=== PATIENT | male | born 1955 | race Caucasian/White ===

== ENCOUNTER 2021-07-27 17:20 | Inpatient (IN) | payer OTHER, MEDICAID, SELFPAY ==
[~2021-07-27] VITALS: Ht 170.2 cm; Wt 106.8 kg
[2021-07-27] MEDS ORDERED: NACL 0.9% 2,000 ML IV ONE (17:30)
[2021-07-27 17:34] VITALS: BP_SYST 120
[2021-07-27 18:18] LABS: ANION GAP 10 (5-15); BASOPHILS % (AUTO) 0.1 % (0.0-2.0); CALCIUM 7.8 mg/dL (8.4-11.0); CHLORIDE 95 mmol/L (98-107); CREATININE 2.59 mg/dL (0.55-1.30); HEMOGLOBIN 9.2 g/dL (14.0-18.0); LYMPHOCYTES # (AUTO) 0.6 K/uL (1.0-5.5); LYMPHOCYTES % (AUTO) 4.2 % (20.5-51.5); MEAN CORPUSCULAR HEMOGLOBIN 29 pg (27-31); MEAN CORPUSCULAR HGB CONC 33 % (32-36); MEAN CORPUSCULAR VOLUME 87 fL (79.0-98.0); MONOCYTES # (AUTO) 0.8 K/uL (0.0-1.0); MONOCYTES % (AUTO) 5.6 % (1.7-9.3); NEUTROPHILS # (AUTO) 13.4 K/uL (1.8-7.7); NEUTROPHILS % (AUTO) 90.1 % (40.0-70.0); PLATELET COUNT (AUTO) 194 K/uL (130-430); POTASSIUM 3.8 mmol/L (3.5-5.1); RED BLOOD CELL COUNT(AUTO) 3.21 MIL/uL (4.2-6.2); RED CELL DISTRIBUTION WIDTH 15.1 % (9.0-15.0); SODIUM SERUM 130 mmol/L (136-145); UREA NITROGEN, BLOOD 28 mg/dL (8-21); WHITE BLOOD COUNT (AUTO) 14.9 K/uL (4.8-10.8)
[2021-07-27 18:19] LABS: INR 1.2 (0.80-1.20); PROTHROMBIN TIME 12.4 SECS (9.5-12.5)
[2021-07-27 18:20] LABS: GFR AFRICAN AMERICAN 32 mL/min (>90)
[2021-07-27 18:21] LABS: GLUCOSE 429 mg/dL (70-99)
[2021-07-27 18:26] LABS: ALANINE AMINOTRANSFERASE 13 U/L (12-78); ALBUMIN 2.2 g/dL (3.4-4.8); ASPARTATE AMINOTRANSFERASE 24 U/L (10-37); TOTAL BILIRUBIN 0.7 mg/dL (0.0-1.0)
[2021-07-27 18:28] LABS: ACETAMINOPHEN < 1 ug/mL (1-30); ALCOHOL, BLOOD < 3 mg/dL (<10)
[2021-07-27] MEDS ORDERED: INSULIN REGULAR, HUMAN 10 UNITS/0.1 ML INJ IVP ONE (18:30)
[2021-07-27 19:48] LABS: BARBITURATE, URINE NEGATIVE (NEG <=200); BENZODIAZEPINE, URINE NEGATIVE (NEG <=150); CANNABINOID, URINE NEGATIVE (NEG <=50); COCAINE, URINE NEGATIVE (NEG <=150); METHAMPHETAMINES SCREEN,URINE POSITIVE (NEG <=500); OPIATE, URINE NEGATIVE (NEG <=100); PHENCYCLIDINE SCREEN,URINE NEGATIVE (NEG <=25); UR TRICYCLIC ANTIDEPRESSANTS NEGATIVE (NEG <=300); URINE AMPHETAMINE POSITIVE (NEG <=500); URINE METHADONE NEGATIVE (NEG <=200); URINE OXYCODONE SCREEN NEGATIVE (NEG <=100); URINE PROPOXYPHENE SCREEN NEGATIVE (NEG <=300)
[2021-07-27 19:49] LABS: BILIRUBIN,URINE NEGATIVE (NEGATIVE); BLOOD, URINE 3+ (NEGATIVE); CLARITY/URINE CLEAR (CLEAR); COLOR,URINE YELLOW (YELLOW); GLUCOSE,URINE 3+ (NEGATIVE); KETONES,URINE NEGATIVE (NEGATIVE); LEUKOCYTE ESTERASE ,URINE 1+ (NEGATIVE); NITRITE, URINE NEGATIVE (NEGATIVE); PROTEIN URINE NEGATIVE (NEGATIVE); UROBILINOGEN,URINE 0.2 (0.2-1.0)
[2021-07-27 19:51] LABS: RBC,URINE NONE SEEN /HPF (0-3)
[2021-07-27 19:52] LABS: BACTERIA,URINE FEW /HPF (None Seen); MUCUS,URINE None Seen /LPF (None Seen); YEAST,URINE Moderate /HPF (None Seen)
[2021-07-27] MEDS ORDERED: cefTRIAXone 1 GM in D5W 50 ML IV ONE (20:30)
[2021-07-27] MEDS ORDERED: cefTRIAXone 1 GM VIAL ONE (20:42)
[2021-07-27] MEDS ORDERED: PIPERACILLIN/TAZO 3.375 GM in NS 50 ML IV ONE (20:45)
[2021-07-27] MEDS ORDERED: NOREPINEPHRINE 4 MG/4 ML VIAL IV ONE (20:54)
[2021-07-27] MEDS ORDERED: HYDROCORTISONE SOD SUCC 100 MG/2 ML VIAL IVP ONE (21:00)
[2021-07-27] MEDS ORDERED: NACL 0.9% 1,000 ML IV ONE (21:00)
[2021-07-27] MEDS ORDERED: NOREPINEPHRINE BITARTRATE 4 MG in NS 246 ML IV ONE (21:00)
[2021-07-27] MEDS ORDERED: ALBUMIN HUMAN 5% 250 ML IV ONE (21:00)
[2021-07-27] MEDS ORDERED: D5/0.45 NS 1,000 ML IV SCH (21:15)
[2021-07-27] MEDS ORDERED: cefTRIAXone 1 GM IVPB PREMIX 50 ML IV SCH (22:00)
[2021-07-27] MEDS ORDERED: INSULIN REGULAR, HUMAN 100 UNITS/ML, 10 ML VIAL IVP ONE (22:00)
[2021-07-27] MEDS ORDERED: ONDANSETRON HCL 4 MG/2 ML VIAL IVP PRN (22:00)
[2021-07-27] MEDS ORDERED: INSULIN REGULAR, HUMAN 10 UNITS/0.1 ML INJ ONE (22:50)
[2021-07-27] MEDS ORDERED: PIPERACILLIN/TAZOBACTAM 3.375 GM/VIAL (ZOSYN) IV ONE (23:05)
[2021-07-27] MEDS: PIPERACILLIN/TAZO 3.375/DEX-IS 50 ML IV SCH (23:08)
[2021-07-28] VITALS (29 sets, daily range): BP systolic 71–158
[2021-07-28] MEDS: LORazepam 2 MG/ML VIAL IVP PRN ×3 (00:26→21:39)
[2021-07-28] MEDS ORDERED: NOREPINEPHRINE 4 MG/4 ML VIAL IV ONE (01:01)
[2021-07-28 06:55] LABS: CALCIUM 7.2 mg/dL (8.4-11.0); CREATININE 2.24 mg/dL (0.55-1.30); POTASSIUM 3.3 mmol/L (3.5-5.1)
[2021-07-28 08:24] LABS: HEMATOCRIT 26.3 % (36-54); RED BLOOD CELL COUNT(AUTO) 3.02 MIL/uL (4.2-6.2); WHITE BLOOD COUNT (AUTO) 13.4 K/uL (4.8-10.8)
[2021-07-28 08:25] LABS: LYMPHOCYTES # (AUTO) 0.6 K/uL (1.0-5.5); LYMPHOCYTES % (AUTO) 4.3 % (20.5-51.5); MEAN CORPUSCULAR HEMOGLOBIN 29 pg (27-31); MEAN CORPUSCULAR HGB CONC 33 % (32-36); MEAN CORPUSCULAR VOLUME 87 fL (79.0-98.0); MONOCYTES # (AUTO) 0.7 K/uL (0.0-1.0); MONOCYTES % (AUTO) 5.3 % (1.7-9.3); NEUTROPHILS # (AUTO) 12.1 K/uL (1.8-7.7); NEUTROPHILS % (AUTO) 90.3 % (40.0-70.0); PLATELET COUNT (AUTO) 168 K/uL (130-430); RED CELL DISTRIBUTION WIDTH 14.9 % (9.0-15.0)
[2021-07-28 08:26] LABS: HEMOGLOBIN 8.6 g/dL (14.0-18.0)
[2021-07-28] MEDS: PIPERACILLIN/TAZO 3.375/DEX-IS 50 ML IV SCH ×2 (12:00→18:43)
[2021-07-28] MEDS: NACL 0.9% 1,000 ML IV SCH ×2 (18:15→23:00)
[2021-07-28] MEDS ORDERED: VANCOMYCIN HCL 1 GM/NS PREMIX 250 ML IV ONE (21:15)
[2021-07-28] MEDS ORDERED: VANCOMYCIN HCL 1000 MG/VIAL IV ONE (21:51)
[2021-07-29] VITALS (24 sets, daily range): BP systolic 97–144
[2021-07-29] MEDS: PIPERACILLIN/TAZO 3.375/DEX-IS 50 ML IV SCH ×6 (00:33→23:48)
[2021-07-29] MEDS: LORazepam 2 MG/ML VIAL IVP PRN ×3 (04:48→21:23)
[2021-07-29] MEDS: NACL 0.9% 1,000 ML IV SCH ×2 (07:40→21:24)
[2021-07-29 07:41] LABS: CALCIUM 7.9 mg/dL (8.4-11.0); CREATININE 2.26 mg/dL (0.55-1.30); PHOSPHORUS 2.9 mg/dL (2.7-4.5); POTASSIUM 3.4 mmol/L (3.5-5.1)
[2021-07-29 07:48] LABS: BASOPHILS % (AUTO) 0.2 % (0.0-2.0); EOSINOPHILS % (AUTO) 0.3 % (0.0-4.0); HEMATOCRIT 24.5 % (36-54); HEMOGLOBIN 8.1 g/dL (14.0-18.0); LYMPHOCYTES # (AUTO) 0.6 K/uL (1.0-5.5); LYMPHOCYTES % (AUTO) 5.9 % (20.5-51.5); MEAN CORPUSCULAR HEMOGLOBIN 29 pg (27-31); MEAN CORPUSCULAR HGB CONC 33 % (32-36); MEAN CORPUSCULAR VOLUME 88 fL (79.0-98.0); MONOCYTES # (AUTO) 0.5 K/uL (0.0-1.0); MONOCYTES % (AUTO) 5.2 % (1.7-9.3); NEUTROPHILS # (AUTO) 9.1 K/uL (1.8-7.7); NEUTROPHILS % (AUTO) 88.4 % (40.0-70.0); PLATELET COUNT (AUTO) 130 K/uL (130-430); RED BLOOD CELL COUNT(AUTO) 2.78 MIL/uL (4.2-6.2); WHITE BLOOD COUNT (AUTO) 10.3 K/uL (4.8-10.8)
[2021-07-29 09:08] LABS: ERYTHROCYTE SEDIMENTATION RATE 114 MM/HR (0-15)
[2021-07-29] MEDS: HALOPERIDOL LACTATE 5 MG/ML VIAL IM PRN (14:11)
[2021-07-29] MEDS ORDERED: VANCOMYCIN HCL 1.25 GM/NS 250 ML IV ONE (21:00)
[2021-07-29] MEDS ORDERED: VANCOMYCIN HCL 500 MG/VIAL IV ONE (21:54)
[2021-07-29] MEDS ORDERED: VANCOMYCIN HCL 1000 MG/VIAL IV ONE (21:54)
[2021-07-29] MEDS ORDERED: HEPARIN SODIUM,PORCINE 5,000 UNITS/ML VIAL ONE (23:26)
[2021-07-29] MEDS: HEPARIN SODIUM,PORCINE 5,000 UNITS/ML VIAL SUBCUT SCH (23:47)
[2021-07-30] VITALS (20 sets, daily range): BP systolic 107–150
[2021-07-30] MEDS: INSULIN REGULAR, HUMAN 100 UNITS/ML, 10 ML VIAL (humuLIN R) SUBCUT PRN ×5 (01:29→23:26)
[2021-07-30] MEDS: LORazepam 2 MG/ML VIAL IVP PRN (04:05)
[2021-07-30] MEDS: NACL 0.9% 1,000 ML IV SCH ×2 (04:33→18:13)
[2021-07-30] MEDS: HALOPERIDOL LACTATE 5 MG/ML VIAL IM PRN (06:02)
[2021-07-30] MEDS: PIPERACILLIN/TAZO 3.375/DEX-IS 50 ML IV SCH ×3 (06:03→18:13)
[2021-07-30 06:33] LABS: BASOPHILS % (AUTO) 0.2 % (0.0-2.0); EOSINOPHILS % (AUTO) 0.2 % (0.0-4.0); HEMATOCRIT 26.5 % (36-54); HEMOGLOBIN 8.8 g/dL (14.0-18.0); LYMPHOCYTES # (AUTO) 0.9 K/uL (1.0-5.5); LYMPHOCYTES % (AUTO) 9.1 % (20.5-51.5); MEAN CORPUSCULAR HEMOGLOBIN 29 pg (27-31); MEAN CORPUSCULAR HGB CONC 33 % (32-36); MEAN CORPUSCULAR VOLUME 87 fL (79.0-98.0); MONOCYTES # (AUTO) 0.5 K/uL (0.0-1.0); MONOCYTES % (AUTO) 5.7 % (1.7-9.3); NEUTROPHILS # (AUTO) 8.2 K/uL (1.8-7.7); NEUTROPHILS % (AUTO) 84.8 % (40.0-70.0); PLATELET COUNT (AUTO) 141 K/uL (130-430); RED BLOOD CELL COUNT(AUTO) 3.05 MIL/uL (4.2-6.2); RED CELL DISTRIBUTION WIDTH 14.9 % (9.0-15.0); WHITE BLOOD COUNT (AUTO) 9.6 K/uL (4.8-10.8)
[2021-07-30 07:18] LABS: CALCIUM 8.1 mg/dL (8.4-11.0); POTASSIUM 3.1 mmol/L (3.5-5.1)
[2021-07-30 07:19] LABS: ALBUMIN 1.7 g/dL (3.4-4.8); CREATININE 1.93 mg/dL (0.55-1.30); PHOSPHORUS 2.4 mg/dL (2.7-4.5); TOTAL BILIRUBIN 0.6 mg/dL (0.0-1.0)
[2021-07-30 09:13] LABS: ERYTHROCYTE SEDIMENTATION RATE 110 MM/HR (0-15)
[2021-07-30] MEDS ORDERED: HEPARIN SODIUM,PORCINE 5,000 UNITS/ML VIAL ONE (09:27)
[2021-07-30] MEDS: FLUCONAZOLE 100 MG TABLET (DIFLUCAN) PO SCH (09:41)
[2021-07-30] MEDS: HEPARIN SODIUM,PORCINE 5,000 UNITS/ML VIAL SUBCUT SCH (09:44)
[2021-07-30] MEDS ORDERED: K PHOS 15 MM in NS 250 ML IV ONE (10:45)
[2021-07-30 10:55] LABS: C-REACTIVE PROTEIN QUANT 36.6 mg/dL (0-0.5)
[2021-07-30] MEDS: VANCOMYCIN HCL 1,250 MG in NS 250 ML IV SCH (21:16)
[2021-07-30] MEDS ORDERED: HEPARIN SODIUM,PORCINE 5,000 UNITS/ML VIAL SUBCUT ONE (21:30)
[2021-07-31] MEDS: LORazepam 2 MG/ML VIAL IVP PRN ×3 (00:16→14:20)
[2021-07-31] MEDS: PIPERACILLIN/TAZO 3.375/DEX-IS 50 ML IV SCH ×5 (00:16→23:42)
[2021-07-31 00:24] VITALS: BP_SYST 136
[2021-07-31] MEDS: HALOPERIDOL LACTATE 5 MG/ML VIAL IM PRN ×2 (03:03→16:50)
[2021-07-31] MEDS: NACL 0.9% 1,000 ML IV SCH ×2 (06:26→09:35)
[2021-07-31] MEDS: INSULIN REGULAR, HUMAN 100 UNITS/ML, 10 ML VIAL (humuLIN R) SUBCUT PRN ×4 (06:34→23:36)
[2021-07-31 06:58] LABS: BASOPHILS % (AUTO) 0.1 % (0.0-2.0); CALCIUM 8.3 mg/dL (8.4-11.0); CREATININE 1.86 mg/dL (0.55-1.30); EOSINOPHILS % (AUTO) 0.1 % (0.0-4.0); HEMATOCRIT 26.6 % (36-54); HEMOGLOBIN 8.8 g/dL (14.0-18.0); LYMPHOCYTES # (AUTO) 1.1 K/uL (1.0-5.5); LYMPHOCYTES % (AUTO) 8.4 % (20.5-51.5); MEAN CORPUSCULAR HEMOGLOBIN 29 pg (27-31); MEAN CORPUSCULAR HGB CONC 33 % (32-36); MEAN CORPUSCULAR VOLUME 87 fL (79.0-98.0); MONOCYTES # (AUTO) 0.7 K/uL (0.0-1.0); MONOCYTES % (AUTO) 5.5 % (1.7-9.3); NEUTROPHILS # (AUTO) 10.8 K/uL (1.8-7.7); NEUTROPHILS % (AUTO) 85.9 % (40.0-70.0); PHOSPHORUS 3.2 mg/dL (2.7-4.5); PLATELET COUNT (AUTO) 171 K/uL (130-430); POTASSIUM 3.1 mmol/L (3.5-5.1); RED BLOOD CELL COUNT(AUTO) 3.06 MIL/uL (4.2-6.2); RED CELL DISTRIBUTION WIDTH 15.6 % (9.0-15.0); WHITE BLOOD COUNT (AUTO) 12.6 K/uL (4.8-10.8)
[2021-07-31 07:48] VITALS: BP_SYST 124
[2021-07-31 08:12] LABS: C-REACTIVE PROTEIN QUANT 32.6 mg/dL (0-0.5)
[2021-07-31] MEDS: FLUCONAZOLE 100 MG TABLET (DIFLUCAN) PO SCH ×2 (08:36→08:51)
[2021-07-31] MEDS: HEPARIN SODIUM,PORCINE 5,000 UNITS/ML VIAL SUBCUT SCH ×2 (08:38→21:53)
[2021-07-31 09:22] LABS: ERYTHROCYTE SEDIMENTATION RATE 113 MM/HR (0-15)
[2021-07-31] MEDS ORDERED: KCL 20 mEq in 100 mL (PREMIX) 100 ML IV ONE (10:15)
[2021-07-31] MEDS: KCL 20 mEq in 100 mL (PREMIX) 100 ML IV SCH ×2 (11:06→12:46)
[2021-07-31 11:39] VITALS: BP_SYST 154
[2021-07-31 15:54] VITALS: BP_SYST 162
[2021-07-31] MEDS ORDERED: HALOPERIDOL LACTATE 5 MG/ML VIAL IM ONE (21:00)
[2021-07-31] MEDS: VANCOMYCIN HCL 1,250 MG in NS 250 ML IV SCH (21:26)
[2021-08-01 00:28] VITALS: BP_SYST 139
[2021-08-01] MEDS: NACL 0.9% 1,000 ML IV SCH ×2 (00:50→14:10)
[2021-08-01] MEDS: PIPERACILLIN/TAZO 3.375/DEX-IS 50 ML IV SCH (06:13)
[2021-08-01] MEDS: HALOPERIDOL LACTATE 5 MG/ML VIAL IM PRN (06:15)
[2021-08-01 06:31] LABS: BASOPHILS % (AUTO) 0.1 % (0.0-2.0); EOSINOPHILS % (AUTO) 0.2 % (0.0-4.0); HEMATOCRIT 26.8 % (36-54); HEMOGLOBIN 8.6 g/dL (14.0-18.0); MEAN CORPUSCULAR HEMOGLOBIN 28 pg (27-31); MEAN CORPUSCULAR HGB CONC 32 % (32-36); MEAN CORPUSCULAR VOLUME 88 fL (79.0-98.0); MONOCYTES # (AUTO) 0.8 K/uL (0.0-1.0); MONOCYTES % (AUTO) 6.2 % (1.7-9.3); NEUTROPHILS # (AUTO) 10.8 K/uL (1.8-7.7); NEUTROPHILS % (AUTO) 85.5 % (40.0-70.0); PLATELET COUNT (AUTO) 222 K/uL (130-430); RED BLOOD CELL COUNT(AUTO) 3.04 MIL/uL (4.2-6.2); RED CELL DISTRIBUTION WIDTH 15.9 % (9.0-15.0); WHITE BLOOD COUNT (AUTO) 12.6 K/uL (4.8-10.8)
[2021-08-01] MEDS: INSULIN REGULAR, HUMAN 100 UNITS/ML, 10 ML VIAL (humuLIN R) SUBCUT PRN ×3 (06:57→17:11)
[2021-08-01 07:22] LABS: ALBUMIN 1.7 g/dL (3.4-4.8); CALCIUM 9.4 mg/dL (8.4-11.0); CREATININE 1.93 mg/dL (0.55-1.30); PHOSPHORUS 3.5 mg/dL (2.7-4.5); POTASSIUM 3.3 mmol/L (3.5-5.1); TOTAL BILIRUBIN 0.8 mg/dL (0.0-1.0)
[2021-08-01 07:38] VITALS: BP_SYST 149
[2021-08-01 07:54] LABS: ERYTHROCYTE SEDIMENTATION RATE 110 MM/HR (0-15)
[2021-08-01] MEDS: FLUCONAZOLE 100 MG TABLET (DIFLUCAN) PO SCH (09:00)
[2021-08-01 09:06] LABS: C-REACTIVE PROTEIN QUANT 34.8 mg/dL (0-0.5)
[2021-08-01] MEDS ORDERED: KCL 20 mEq in 100 mL (PREMIX) 100 ML IV ONE (10:00)
[2021-08-01] MEDS: HEPARIN SODIUM,PORCINE 5,000 UNITS/ML VIAL SUBCUT SCH ×2 (10:12→22:08)
[2021-08-01] MEDS: LORazepam 2 MG/ML VIAL IVP PRN ×2 (10:12→15:00)
[2021-08-01] MEDS: cefTRIAXone 1 GM in D5W 50 ML IV SCH (10:13)
[2021-08-01 11:41] VITALS: BP_SYST 142
[2021-08-01 15:40] VITALS: BP_SYST 154
[2021-08-01 20:30] VITALS: BP_SYST 138
[2021-08-01] MEDS: VANCOMYCIN HCL 1,500 MG in NS 250 ML IV SCH (22:09)
[2021-08-02] VITALS (7 sets, daily range): BP systolic 133–164
[2021-08-02] MEDS: INSULIN REGULAR, HUMAN 100 UNITS/ML, 10 ML VIAL (humuLIN R) SUBCUT PRN ×4 (00:35→18:44)
[2021-08-02] MEDS: NACL 0.9% 1,000 ML IV SCH ×2 (03:47→18:43)
[2021-08-02 06:47] LABS: BASOPHILS % (AUTO) 0.3 % (0.0-2.0); EOSINOPHILS % (AUTO) 0.3 % (0.0-4.0); HEMOGLOBIN 8.7 g/dL (14.0-18.0); LYMPHOCYTES # (AUTO) 1.1 K/uL (1.0-5.5); LYMPHOCYTES % (AUTO) 11.3 % (20.5-51.5); MEAN CORPUSCULAR HEMOGLOBIN 29 pg (27-31); MEAN CORPUSCULAR HGB CONC 32 % (32-36); MEAN CORPUSCULAR VOLUME 89 fL (79.0-98.0); MONOCYTES # (AUTO) 0.8 K/uL (0.0-1.0); MONOCYTES % (AUTO) 8.5 % (1.7-9.3); NEUTROPHILS # (AUTO) 7.8 K/uL (1.8-7.7); NEUTROPHILS % (AUTO) 79.6 % (40.0-70.0); PLATELET COUNT (AUTO) 299 K/uL (130-430); RED BLOOD CELL COUNT(AUTO) 3.04 MIL/uL (4.2-6.2); RED CELL DISTRIBUTION WIDTH 16.3 % (9.0-15.0); WHITE BLOOD COUNT (AUTO) 9.8 K/uL (4.8-10.8)
[2021-08-02 06:59] LABS: CALCIUM 8.9 mg/dL (8.4-11.0); CREATININE 1.85 mg/dL (0.55-1.30); PHOSPHORUS 3.3 mg/dL (2.7-4.5); POTASSIUM 3.1 mmol/L (3.5-5.1)
[2021-08-02] MEDS: LORazepam 2 MG/ML VIAL IVP PRN ×2 (08:36→18:34)
[2021-08-02] MEDS: FLUCONAZOLE 100 MG TABLET (DIFLUCAN) PO SCH (08:37)
[2021-08-02] MEDS: HEPARIN SODIUM,PORCINE 5,000 UNITS/ML VIAL SUBCUT SCH ×2 (08:37→21:21)
[2021-08-02 09:34] LABS: C-REACTIVE PROTEIN QUANT 30.4 mg/dL (0-0.5)
[2021-08-02] MEDS ORDERED: KCL 40 mEq in 100 mL (PREMIX) 100 ML IV ONE (10:00)
[2021-08-02] MEDS: cefTRIAXone 1 GM in D5W 50 ML IV SCH (10:54)
[2021-08-02 10:58] LABS: ERYTHROCYTE SEDIMENTATION RATE 107 MM/HR (0-15)
[2021-08-02] MEDS ORDERED: hydrALAZINE HCL 20 MG/ML VIAL IVP PRN (18:15)
[2021-08-02] MEDS ORDERED: *PPN PER PHARMACY XX PRN (20:00)
[2021-08-02] MEDS ORDERED: FUROSEMIDE 40 MG/4 ML VIAL IVP ONE (21:00)
[2021-08-02] MEDS: VANCOMYCIN HCL 1,500 MG in NS 250 ML IV SCH (21:13)
[2021-08-03] MEDS: INSULIN REGULAR, HUMAN 100 UNITS/ML, 10 ML VIAL (humuLIN R) SUBCUT PRN ×4 (00:46→17:20)
[2021-08-03 01:19] VITALS: BP_SYST 150
[2021-08-03] MEDS: LORazepam 2 MG/ML VIAL IVP PRN ×4 (01:54→21:25)
[2021-08-03] MEDS ORDERED: ACETAMINOPHEN 650 MG SUPP.RECT RC PRN (02:45)
[2021-08-03] MEDS: HALOPERIDOL LACTATE 5 MG/ML VIAL IM PRN ×4 (06:01→23:26)
[2021-08-03 07:13] LABS: BASOPHILS % (AUTO) 0.4 % (0.0-2.0); EOSINOPHILS % (AUTO) 0.5 % (0.0-4.0); HEMATOCRIT 27.7 % (36-54); HEMOGLOBIN 8.6 g/dL (14.0-18.0); LYMPHOCYTES # (AUTO) 1.3 K/uL (1.0-5.5); LYMPHOCYTES % (AUTO) 16.4 % (20.5-51.5); MEAN CORPUSCULAR HEMOGLOBIN 28 pg (27-31); MEAN CORPUSCULAR HGB CONC 31 % (32-36); MEAN CORPUSCULAR VOLUME 91 fL (79.0-98.0); MONOCYTES # (AUTO) 0.7 K/uL (0.0-1.0); MONOCYTES % (AUTO) 8.9 % (1.7-9.3); NEUTROPHILS # (AUTO) 5.6 K/uL (1.8-7.7); NEUTROPHILS % (AUTO) 73.8 % (40.0-70.0); PLATELET COUNT (AUTO) 307 K/uL (130-430); RED BLOOD CELL COUNT(AUTO) 3.04 MIL/uL (4.2-6.2); RED CELL DISTRIBUTION WIDTH 16.6 % (9.0-15.0); WHITE BLOOD COUNT (AUTO) 7.6 K/uL (4.8-10.8)
[2021-08-03 07:46] LABS: ALBUMIN 1.5 g/dL (3.4-4.8); CALCIUM 9.7 mg/dL (8.4-11.0); CREATININE 2.37 mg/dL (0.55-1.30); PHOSPHORUS 3.5 mg/dL (2.7-4.5); POTASSIUM 3.2 mmol/L (3.5-5.1); TOTAL BILIRUBIN 0.5 mg/dL (0.0-1.0)
[2021-08-03 08:00] VITALS: BP_SYST 144
[2021-08-03] MEDS: FLUCONAZOLE 100 MG TABLET (DIFLUCAN) PO SCH (09:00)
[2021-08-03 09:12] LABS: ERYTHROCYTE SEDIMENTATION RATE 121 MM/HR (0-15)
[2021-08-03 09:27] LABS: C-REACTIVE PROTEIN QUANT 30.3 mg/dL (0-0.5)
[2021-08-03] MEDS: HEPARIN SODIUM,PORCINE 5,000 UNITS/ML VIAL SUBCUT SCH ×2 (09:49→21:26)
[2021-08-03] MEDS: CHLORHEXIDINE GLUCONATE 15 ML/DOSE, 480 ML MM SCH ×2 (09:51→21:24)
[2021-08-03] MEDS: D5W 1,000 ML IV SCH ×2 (10:27→22:04)
[2021-08-03] MEDS: cefTRIAXone 1 GM in D5W 50 ML IV SCH (11:00)
[2021-08-03 12:57] VITALS: BP_SYST 146
[2021-08-03 16:00] VITALS: BP_SYST 145
[2021-08-03 20:28] VITALS: BP_SYST 172
[2021-08-03] MEDS ORDERED: [UNRECOGNIZED DRUG - OTHER] IV SCH ×6 (21:00)
[2021-08-03] MEDS ORDERED: TPN PERIPHERAL IV SCH ×6 (21:00)
[2021-08-03] MEDS ORDERED: TRACE ELEMENTS IV SCH ×6 (21:00)
[2021-08-03] MEDS ORDERED: HUMAN IV SCH ×6 (21:00)
[2021-08-03] MEDS ORDERED: INSULIN REGULAR IV SCH ×6 (21:00)
[2021-08-03] MEDS: FAT EMULSIONS 250 ML IV SCH (21:56)
[2021-08-03] MEDS: VANCOMYCIN HCL 1,500 MG in NS 250 ML IV SCH (22:04)
[2021-08-04] MEDS: INSULIN REGULAR, HUMAN 100 UNITS/ML, 10 ML VIAL (humuLIN R) SUBCUT PRN ×4 (00:03→17:21)
[2021-08-04] MEDS: HALOPERIDOL LACTATE 5 MG/ML VIAL IM PRN (03:27)
[2021-08-04 06:09] LABS: BASOPHILS % (AUTO) 0.5 % (0.0-2.0); EOSINOPHILS % (AUTO) 0.3 % (0.0-4.0); HEMATOCRIT 27.9 % (36-54); HEMOGLOBIN 8.7 g/dL (14.0-18.0); LYMPHOCYTES # (AUTO) 1.4 K/uL (1.0-5.5); LYMPHOCYTES % (AUTO) 16.7 % (20.5-51.5); MEAN CORPUSCULAR HEMOGLOBIN 29 pg (27-31); MEAN CORPUSCULAR HGB CONC 31 % (32-36); MEAN CORPUSCULAR VOLUME 92 fL (79.0-98.0); MONOCYTES # (AUTO) 0.6 K/uL (0.0-1.0); MONOCYTES % (AUTO) 7.2 % (1.7-9.3); NEUTROPHILS # (AUTO) 6.3 K/uL (1.8-7.7); NEUTROPHILS % (AUTO) 75.3 % (40.0-70.0); PLATELET COUNT (AUTO) 301 K/uL (130-430); RED BLOOD CELL COUNT(AUTO) 3.05 MIL/uL (4.2-6.2); RED CELL DISTRIBUTION WIDTH 16.8 % (9.0-15.0); WHITE BLOOD COUNT (AUTO) 8.4 K/uL (4.8-10.8)
[2021-08-04 06:22] LABS: ALBUMIN 1.6 g/dL (3.4-4.8); CALCIUM 10.1 mg/dL (8.4-11.0); CREATININE 2.3 mg/dL (0.55-1.30); PHOSPHORUS 3.7 mg/dL (2.7-4.5); POTASSIUM 3.3 mmol/L (3.5-5.1); TOTAL BILIRUBIN 0.2 mg/dL (0.0-1.0)
[2021-08-04 08:00] VITALS: BP_SYST 142
[2021-08-04] MEDS: D5W 1,000 ML IV SCH ×3 (08:12→15:11)
[2021-08-04 08:49] LABS: C-REACTIVE PROTEIN QUANT 31.5 mg/dL (0-0.5)
[2021-08-04] MEDS: FLUCONAZOLE 100 MG TABLET (DIFLUCAN) PO SCH (09:00)
[2021-08-04] MEDS: HEPARIN SODIUM,PORCINE 5,000 UNITS/ML VIAL SUBCUT SCH ×2 (09:13→21:37)
[2021-08-04] MEDS: CHLORHEXIDINE GLUCONATE 15 ML/DOSE, 480 ML MM SCH ×2 (09:25→21:42)
[2021-08-04] MEDS: LORazepam 2 MG/ML VIAL IVP PRN (09:25)
[2021-08-04 10:17] LABS: ERYTHROCYTE SEDIMENTATION RATE 117 MM/HR (0-15)
[2021-08-04] MEDS: cefTRIAXone 1 GM in D5W 50 ML IV SCH (11:05)
[2021-08-04 12:34] VITALS: BP_SYST 150
[2021-08-04 16:49] VITALS: BP_SYST 112
[2021-08-04] MEDS ORDERED: COMMUNICATION ORDER XX ONE (17:15)
[2021-08-04] MEDS: FLUCONAZOLE 100 mg/ NS 50 ML IV SCH (18:11)
[2021-08-04 20:00] VITALS: BP_SYST 145
[2021-08-04] MEDS ORDERED: INSULIN LISPRO SLIDING SCALE 100 UNITS/ML VIAL (humaLOG) SUBCUT PRN (20:15)
[2021-08-04] MEDS ORDERED: TPN PERIPHERAL IV SCH ×6 (21:00)
[2021-08-04] MEDS ORDERED: POTASSIUM ACETATE IV SCH ×6 (21:00)
[2021-08-04] MEDS ORDERED: INSULIN GLARGINE 100 UNITS/ML 10 ML VIAL SUBCUT SCH (21:00)
[2021-08-04] MEDS ORDERED: [UNRECOGNIZED DRUG - OTHER] IV SCH ×6 (21:00)
[2021-08-04] MEDS ORDERED: TRACE ELEMENTS IV SCH ×6 (21:00)
[2021-08-04] MEDS: FAT EMULSIONS 250 ML IV SCH (21:35)
[2021-08-04] MEDS: INSULIN GLARGINE 100 UNITS/ML 10 ML VIAL SUBCUT SCH (21:44)
[2021-08-04] MEDS: VANCOMYCIN HCL 1,500 MG in NS 250 ML IV SCH (21:47)
[2021-08-04] MEDS ORDERED: INSULIN Lispro 100 UNITS/ML VIAL (humaLOG) SUBCUT ONE (23:45)
[2021-08-05] VITALS (18 sets, daily range): BP systolic 120–149
[2021-08-05] MEDS ORDERED: INSULIN Lispro 100 UNITS/ML VIAL (humaLOG) SUBCUT ONE (02:00)
[2021-08-05] MEDS ORDERED: INSULIN Lispro 100 UNITS/ML VIAL (humaLOG) IV ONE (03:00)
[2021-08-05] MEDS: D5W 1,000 ML IV SCH (05:14)
[2021-08-05] MEDS ORDERED: COMMUNICATION ORDER XX ONE ×2 (05:15→05:30)
[2021-08-05] MEDS ORDERED: INSULIN REGULAR, HUMAN 100 UNITS in NS 99 ML IV PRN ×2 (06:00)
[2021-08-05] MEDS ORDERED: DEXTROSE 50% JECT 50 ML (1 AMP) IVP PRN (06:00)
[2021-08-05] MEDS ORDERED: DEXTROSE 50% JECT 25 ML (1/2 AMP) IVP PRN (06:00)
[2021-08-05] MEDS ORDERED: INSULIN REGULAR, HUMAN 100 UNITS/ML, 10 ML VIAL IV ONE (06:00)
[2021-08-05 06:49] LABS: ALBUMIN 1.5 g/dL (3.4-4.8); CALCIUM 10.4 mg/dL (8.4-11.0); CREATININE 2.62 mg/dL (0.55-1.30); PHOSPHORUS 2.4 mg/dL (2.7-4.5); POTASSIUM 3.5 mmol/L (3.5-5.1); TOTAL BILIRUBIN 0.2 mg/dL (0.0-1.0)
[2021-08-05] MEDS: HEPARIN SODIUM,PORCINE 5,000 UNITS/ML VIAL SUBCUT SCH ×2 (09:45→22:31)
[2021-08-05] MEDS: CHLORHEXIDINE GLUCONATE 15 ML/DOSE, 480 ML MM SCH ×2 (10:11→22:28)
[2021-08-05] MEDS: INSULIN GLARGINE 100 UNITS/ML 10 ML VIAL SUBCUT SCH ×2 (10:14→21:05)
[2021-08-05] MEDS: cefTRIAXone 1 GM in D5W 50 ML IV SCH (11:10)
[2021-08-05] MEDS: LORazepam 2 MG/ML VIAL IVP PRN (11:45)
[2021-08-05] MEDS: 0.45% NACL 1,000 ML IV SCH (15:34)
[2021-08-05] MEDS: FLUCONAZOLE 100 mg/ NS 50 ML IV SCH (17:33)
[2021-08-05] MEDS ORDERED: [UNRECOGNIZED DRUG - OTHER] IV SCH ×7 (21:00)
[2021-08-05] MEDS ORDERED: TRACE ELEMENTS IV SCH ×7 (21:00)
[2021-08-05] MEDS ORDERED: TPN PERIPHERAL IV SCH ×7 (21:00)
[2021-08-05] MEDS ORDERED: K PHOS IV SCH ×7 (21:00)
[2021-08-05] MEDS ORDERED: POTASSIUM ACETATE IV SCH ×7 (21:00)
[2021-08-05] MEDS: VANCOMYCIN HCL 1,500 MG in NS 250 ML IV SCH (22:28)
[2021-08-05] MEDS: FAT EMULSIONS 250 ML IV SCH (22:33)
[2021-08-06] VITALS (32 sets, daily range): BP systolic 96–148
[2021-08-06] MEDS: LORazepam 2 MG/ML VIAL IVP PRN (00:06)
[2021-08-06] MEDS: 0.45% NACL 1,000 ML IV SCH ×3 (06:02→10:59)
[2021-08-06 06:11] LABS: BASOPHILS # (AUTO) 0.1 K/uL (0.0-0.2); BASOPHILS % (AUTO) 0.8 % (0.0-2.0); EOSINOPHILS # (AUTO) 0.1 K/uL (0.0-0.4); EOSINOPHILS % (AUTO) 0.8 % (0.0-4.0); HEMATOCRIT 29.9 % (36-54); HEMOGLOBIN 9.3 g/dL (14.0-18.0); LYMPHOCYTES # (AUTO) 1.4 K/uL (1.0-5.5); LYMPHOCYTES % (AUTO) 15.4 % (20.5-51.5); MEAN CORPUSCULAR HEMOGLOBIN 29 pg (27-31); MEAN CORPUSCULAR HGB CONC 31 % (32-36); MEAN CORPUSCULAR VOLUME 93 fL (79.0-98.0); MONOCYTES # (AUTO) 0.3 K/uL (0.0-1.0); MONOCYTES % (AUTO) 3.7 % (1.7-9.3); NEUTROPHILS # (AUTO) 7.4 K/uL (1.8-7.7); NEUTROPHILS % (AUTO) 79.3 % (40.0-70.0); PLATELET COUNT (AUTO) 251 K/uL (130-430); RED BLOOD CELL COUNT(AUTO) 3.23 MIL/uL (4.2-6.2); RED CELL DISTRIBUTION WIDTH 17.1 % (9.0-15.0); WHITE BLOOD COUNT (AUTO) 9.4 K/uL (4.8-10.8)
[2021-08-06 07:41] LABS: ALBUMIN 1.5 g/dL (3.4-4.8); CALCIUM 10.1 mg/dL (8.4-11.0); CREATININE 2.56 mg/dL (0.55-1.30); PHOSPHORUS 3.5 mg/dL (2.7-4.5); POTASSIUM 3.6 mmol/L (3.5-5.1); TOTAL BILIRUBIN 0.2 mg/dL (0.0-1.0)
[2021-08-06] MEDS ORDERED: INSULIN REGULAR, HUMAN 100 UNITS in NS 99 ML IV PRN ×2 (08:00)
[2021-08-06 08:30] LABS: C-REACTIVE PROTEIN QUANT 19.9 mg/dL (0-0.5)
[2021-08-06 08:47] LABS: ERYTHROCYTE SEDIMENTATION RATE 114 MM/HR (0-15)
[2021-08-06] MEDS: CHLORHEXIDINE GLUCONATE 15 ML/DOSE, 480 ML MM SCH ×2 (09:00→21:15)
[2021-08-06] MEDS ORDERED: PROPOFOL 200MG/ 20ML VIAL (DIPRIVAN) IV SCH (09:15)
[2021-08-06] MEDS ORDERED: ETOMIDATE 20 MG/ 10 ML VIAL (AMIDATE) ONE (09:29)
[2021-08-06] MEDS ORDERED: ROCURONIUM BROMIDE 10 MG/ML (ZEMURON) ONE (09:29)
[2021-08-06] MEDS: HEPARIN SODIUM,PORCINE 5,000 UNITS/ML VIAL SUBCUT SCH ×2 (10:52→21:16)
[2021-08-06] MEDS: cefTRIAXone 1 GM in D5W 50 ML IV SCH (11:08)
[2021-08-06] MEDS ORDERED: ROCURONIUM BROMIDE 10 MG/ML (ZEMURON) IV ONE (11:30)
[2021-08-06] MEDS ORDERED: ETOMIDATE 20 MG/ 10 ML VIAL (AMIDATE) IVP ONE (11:30)
[2021-08-06] MEDS: PROPOFOL DRIP 100 ML IV SCH ×2 (11:54→20:29)
[2021-08-06] MEDS: INSULIN GLARGINE 100 UNITS/ML 10 ML VIAL SUBCUT SCH ×2 (11:57→21:17)
[2021-08-06] MEDS: INSULIN REGULAR, HUMAN 100 UNITS in NS 99 ML IV PRN ×2 (15:45)
[2021-08-06] MEDS: D5W 1,000 ML IV SCH (15:58)
[2021-08-06] MEDS: FLUCONAZOLE 100 mg/ NS 50 ML IV SCH (18:37)
[2021-08-06] MEDS: FAT EMULSIONS 250 ML IV SCH (20:30)
[2021-08-06] MEDS ORDERED: [UNRECOGNIZED DRUG - OTHER] IV SCH ×7 (21:00)
[2021-08-06] MEDS ORDERED: TRACE ELEMENTS IV SCH ×7 (21:00)
[2021-08-06] MEDS ORDERED: K PHOS IV SCH ×7 (21:00)
[2021-08-06] MEDS ORDERED: TPN PERIPHERAL IV SCH ×7 (21:00)
[2021-08-06] MEDS ORDERED: POTASSIUM ACETATE IV SCH ×7 (21:00)
[2021-08-06] MEDS: VANCOMYCIN HCL 1,000 MG in NS 250 ML IV SCH (21:41)
[2021-08-07] VITALS (33 sets, daily range): BP systolic 89–128
[2021-08-07] MEDS: D5W 1,000 ML IV SCH ×3 (00:45→11:07)
[2021-08-07 01:22] LABS: CALCIUM 8.9 mg/dL (8.4-11.0); CREATININE 2.93 mg/dL (0.55-1.30); POTASSIUM 3.9 mmol/L (3.5-5.1)
[2021-08-07] MEDS ORDERED: INSULIN REGULAR, HUMAN 100 UNITS/ML, 10 ML VIAL IVP ONE (03:15)
[2021-08-07 06:39] LABS: ALBUMIN 1.2 g/dL (3.4-4.8); CALCIUM 9.7 mg/dL (8.4-11.0); CREATININE 3.04 mg/dL (0.55-1.30); PHOSPHORUS 2.8 mg/dL (2.7-4.5); POTASSIUM 3.6 mmol/L (3.5-5.1); THYROID STIMULATING HORMONE 0.25 uIu/mL (0.36-3.74)
[2021-08-07 06:59] LABS: TOTAL BILIRUBIN 0.2 mg/dL (0.0-1.0)
[2021-08-07 07:00] LABS: C-REACTIVE PROTEIN QUANT 16.2 mg/dL (0-0.5)
[2021-08-07 07:41] LABS: BASOPHILS % (AUTO) 0.4 % (0.0-2.0); EOSINOPHILS # (AUTO) 0.1 K/uL (0.0-0.4); EOSINOPHILS % (AUTO) 0.8 % (0.0-4.0); HEMATOCRIT 27.4 % (36-54); HEMOGLOBIN 8.5 g/dL (14.0-18.0); LYMPHOCYTES # (AUTO) 1.4 K/uL (1.0-5.5); LYMPHOCYTES % (AUTO) 14.9 % (20.5-51.5); MEAN CORPUSCULAR HEMOGLOBIN 29 pg (27-31); MEAN CORPUSCULAR HGB CONC 31 % (32-36); MEAN CORPUSCULAR VOLUME 92 fL (79.0-98.0); MONOCYTES # (AUTO) 0.3 K/uL (0.0-1.0); MONOCYTES % (AUTO) 3.5 % (1.7-9.3); NEUTROPHILS # (AUTO) 7.3 K/uL (1.8-7.7); NEUTROPHILS % (AUTO) 80.4 % (40.0-70.0); PLATELET COUNT (AUTO) 167 K/uL (130-430); RED BLOOD CELL COUNT(AUTO) 2.97 MIL/uL (4.2-6.2); RED CELL DISTRIBUTION WIDTH 16.8 % (9.0-15.0); WHITE BLOOD COUNT (AUTO) 9.1 K/uL (4.8-10.8)
[2021-08-07] MEDS: INSULIN GLARGINE 100 UNITS/ML 10 ML VIAL SUBCUT SCH ×2 (08:47→21:30)
[2021-08-07] MEDS: HEPARIN SODIUM,PORCINE 5,000 UNITS/ML VIAL SUBCUT SCH ×2 (08:48→20:36)
[2021-08-07] MEDS: CHLORHEXIDINE GLUCONATE 15 ML/DOSE, 480 ML MM SCH ×2 (08:49→20:38)
[2021-08-07] MEDS: FUROSEMIDE 20 MG/2 ML VIAL IVP SCH ×2 (08:49→20:37)
[2021-08-07] MEDS: PROPOFOL DRIP 100 ML IV SCH ×2 (08:58→16:59)
[2021-08-07] MEDS: INSULIN REGULAR, HUMAN 100 UNITS in NS 99 ML IV PRN ×2 (09:51)
[2021-08-07 10:15] LABS: ERYTHROCYTE SEDIMENTATION RATE 117 MM/HR (0-15)
[2021-08-07] MEDS: cefTRIAXone 1 GM in D5W 50 ML IV SCH (10:59)
[2021-08-07] MEDS ORDERED: 0.45% NS 500 ML IV ONE (15:15)
[2021-08-07] MEDS: FLUCONAZOLE 100 mg/ NS 50 ML IV SCH (17:42)
[2021-08-07 19:49] LABS: CALCIUM 9.8 mg/dL (8.4-11.0); CREATININE 3.89 mg/dL (0.55-1.30)
[2021-08-07] MEDS: 0.45% NACL 1,000 ML IV SCH (20:37)
[2021-08-07] MEDS ORDERED: TPN PERIPHERAL IV SCH ×7 (21:00)
[2021-08-07] MEDS ORDERED: K PHOS IV SCH ×7 (21:00)
[2021-08-07] MEDS ORDERED: [UNRECOGNIZED DRUG - OTHER] IV SCH ×7 (21:00)
[2021-08-07] MEDS ORDERED: POTASSIUM ACETATE IV SCH ×7 (21:00)
[2021-08-07] MEDS ORDERED: TRACE ELEMENTS IV SCH ×7 (21:00)
[2021-08-07] MEDS: VANCOMYCIN HCL 1,000 MG in NS 250 ML IV SCH (22:42)
[2021-08-08] VITALS (43 sets, daily range): BP systolic 87–127
[2021-08-08] MEDS: INSULIN REGULAR, HUMAN 100 UNITS in NS 99 ML IV PRN ×6 (03:04→19:45)
[2021-08-08] MEDS: PROPOFOL DRIP 100 ML IV SCH ×3 (03:06→23:47)
[2021-08-08 06:33] LABS: BASOPHILS % (AUTO) 0.3 % (0.0-2.0); EOSINOPHILS # (AUTO) 0.1 K/uL (0.0-0.4); HEMATOCRIT 26.1 % (36-54); HEMOGLOBIN 8.1 g/dL (14.0-18.0); LYMPHOCYTES % (AUTO) 18.8 % (20.5-51.5); MEAN CORPUSCULAR HEMOGLOBIN 28 pg (27-31); MEAN CORPUSCULAR HGB CONC 31 % (32-36); MEAN CORPUSCULAR VOLUME 91 fL (79.0-98.0); MONOCYTES # (AUTO) 0.3 K/uL (0.0-1.0); MONOCYTES % (AUTO) 3.3 % (1.7-9.3); NEUTROPHILS % (AUTO) 76.6 % (40.0-70.0); PLATELET COUNT (AUTO) 156 K/uL (130-430); RED BLOOD CELL COUNT(AUTO) 2.86 MIL/uL (4.2-6.2); RED CELL DISTRIBUTION WIDTH 16.8 % (9.0-15.0); WHITE BLOOD COUNT (AUTO) 10.4 K/uL (4.8-10.8)
[2021-08-08 07:05] LABS: ALBUMIN 1.1 g/dL (3.4-4.8); CALCIUM 9.9 mg/dL (8.4-11.0); CREATININE 4.39 mg/dL (0.55-1.30); PHOSPHORUS 5.1 mg/dL (2.7-4.5); POTASSIUM 3.9 mmol/L (3.5-5.1); TOTAL BILIRUBIN 0.3 mg/dL (0.0-1.0)
[2021-08-08 08:44] LABS: C-REACTIVE PROTEIN QUANT 21.1 mg/dL (0-0.5)
[2021-08-08 08:51] LABS: VANCOMYCIN,RANDOM 53.3 ug/mL
[2021-08-08 08:52] LABS: ERYTHROCYTE SEDIMENTATION RATE 115 MM/HR (0-15)
[2021-08-08] MEDS: CHLORHEXIDINE GLUCONATE 15 ML/DOSE, 480 ML MM SCH ×2 (09:05→21:31)
[2021-08-08] MEDS: FUROSEMIDE 20 MG/2 ML VIAL IVP SCH ×3 (09:05→21:00)
[2021-08-08] MEDS: HEPARIN SODIUM,PORCINE 5,000 UNITS/ML VIAL SUBCUT SCH ×2 (09:08→21:57)
[2021-08-08] MEDS: INSULIN GLARGINE 100 UNITS/ML 10 ML VIAL SUBCUT SCH ×2 (09:10→21:55)
[2021-08-08 10:15] LABS: INR 1.1 (0.80-1.20); PROTHROMBIN TIME 11.5 SECS (9.5-12.5)
[2021-08-08] MEDS: cefTRIAXone 1 GM in D5W 50 ML IV SCH (10:54)
[2021-08-08] MEDS: FLUCONAZOLE 100 mg/ NS 50 ML IV SCH (18:17)
[2021-08-08] MEDS ORDERED: HEPARIN SODIUM, PORCINE 10,000 UNITS/ 10 ML VIAL ONE (19:12)
[2021-08-08] MEDS ORDERED: NOREPINEPHRINE 4 MG/4 ML VIAL IV ONE (20:45)
[2021-08-09] VITALS (50 sets, daily range): BP systolic 81–157
[2021-08-09 06:53] LABS: BASOPHILS % (AUTO) 0.4 % (0.0-2.0); EOSINOPHILS # (AUTO) 0.1 K/uL (0.0-0.4); EOSINOPHILS % (AUTO) 0.7 % (0.0-4.0); HEMATOCRIT 24.6 % (36-54); HEMOGLOBIN 7.7 g/dL (14.0-18.0); LYMPHOCYTES # (AUTO) 1.8 K/uL (1.0-5.5); MEAN CORPUSCULAR HEMOGLOBIN 29 pg (27-31); MEAN CORPUSCULAR HGB CONC 32 % (32-36); MEAN CORPUSCULAR VOLUME 91 fL (79.0-98.0); MONOCYTES # (AUTO) 0.5 K/uL (0.0-1.0); MONOCYTES % (AUTO) 4.5 % (1.7-9.3); NEUTROPHILS # (AUTO) 8.1 K/uL (1.8-7.7); NEUTROPHILS % (AUTO) 77.4 % (40.0-70.0); PLATELET COUNT (AUTO) 160 K/uL (130-430); RED BLOOD CELL COUNT(AUTO) 2.72 MIL/uL (4.2-6.2); RED CELL DISTRIBUTION WIDTH 16.5 % (9.0-15.0); WHITE BLOOD COUNT (AUTO) 10.4 K/uL (4.8-10.8)
[2021-08-09 07:17] LABS: ALBUMIN 1.1 g/dL (3.4-4.8); CALCIUM 8.8 mg/dL (8.4-11.0); CREATININE 5.66 mg/dL (0.55-1.30); PHOSPHORUS 6.5 mg/dL (2.7-4.5); POTASSIUM 3.9 mmol/L (3.5-5.1); TOTAL BILIRUBIN 0.3 mg/dL (0.0-1.0)
[2021-08-09 08:08] LABS: BILIRUBIN,DIRECT 0.1 mg/dL (0.0-0.3)
[2021-08-09] MEDS: PROPOFOL DRIP 100 ML IV SCH (09:33)
[2021-08-09] MEDS: CHLORHEXIDINE GLUCONATE 15 ML/DOSE, 480 ML MM SCH ×2 (09:50→21:55)
[2021-08-09] MEDS: FUROSEMIDE 20 MG/2 ML VIAL IVP SCH ×3 (09:50→21:53)
[2021-08-09] MEDS: HEPARIN SODIUM,PORCINE 5,000 UNITS/ML VIAL SUBCUT SCH ×2 (09:57→22:03)
[2021-08-09] MEDS: INSULIN GLARGINE 100 UNITS/ML 10 ML VIAL SUBCUT SCH ×2 (09:58→21:00)
[2021-08-09] MEDS: cefTRIAXone 1 GM in D5W 50 ML IV SCH (10:03)
[2021-08-09 10:26] LABS: VANCOMYCIN,RANDOM 43.7 ug/mL
[2021-08-09 10:45] LABS: TOTAL IRON BIND. CAPACITY 106 ug/dL (250-450)
[2021-08-09 10:48] LABS: C-REACTIVE PROTEIN QUANT 16.8 mg/dL (0-0.5)
[2021-08-09] MEDS ORDERED: POLYETHYLENE GLYCOL 3350, 17 GM/ POWD.PACK PO ONE (11:00)
[2021-08-09] MEDS ORDERED: DOCUSATE SODIUM 100 MG/10 ML UDC PO ONE (11:00)
[2021-08-09] MEDS ORDERED: PANTOPRAZOLE SODIUM 40 MG/VIAL (PROTONIX) IVP ONE (11:00)
[2021-08-09] MEDS ORDERED: *CUBICIN 6 MG/KG Q48H/PHARMACY XX PRN (11:30)
[2021-08-09 11:47] LABS: ERYTHROCYTE SEDIMENTATION RATE 119 MM/HR (0-15)
[2021-08-09 13:06] LABS: HEPATITIS A AB, IgM Negative (Negative); HEPATITIS B CORE AB, IgM Negative (Negative); HEPATITIS B SURFACE AG Negative (Negative)
[2021-08-09] MEDS: INSULIN REGULAR, HUMAN 100 UNITS in NS 99 ML IV PRN ×2 (13:40)
[2021-08-09] MEDS: NS IV SCH (13:41)
[2021-08-09] MEDS: DAPTOMYCIN IV SCH (13:41)
[2021-08-09] MEDS ORDERED: HEPARIN SODIUM,PORCINE 5,000 UNITS/ML VIAL MC ONE (17:45)
[2021-08-09] MEDS ORDERED: fentaNYL CITRATE/PF 100 MCG/2 ML AMP IVP PRN (19:45)
[2021-08-09] MEDS ORDERED: fentaNYL CITRATE/PF 100 MCG/2 ML AMP ONE (20:10)
[2021-08-09] MEDS ORDERED: MIDAZOLAM IN NACL,ISO-OSMOT/PF 100 ML IV PRN (21:45)
[2021-08-09] MEDS ORDERED: MIDAZOLAM IN NACL,ISO-OSMOT/PF 100 ML IV ONE (21:47)
[2021-08-09] MEDS ORDERED: FUROSEMIDE 20 MG/2 ML VIAL ONE (21:49)
[2021-08-09] MEDS ORDERED: HEPARIN SODIUM,PORCINE 5,000 UNITS/ML VIAL ONE (21:49)
[2021-08-09] MEDS ORDERED: DOCUSATE SODIUM 100 MG/10 ML UDC ONE (21:50)
[2021-08-09] MEDS: DOCUSATE SODIUM 100 MG/10 ML UDC PO SCH (21:53)
[2021-08-09] MEDS: NOREPINEPHRINE BITARTRATE 8 MG in NS 242 ML IV PRN (22:04)
[2021-08-09] MEDS: 0.45% NACL 1,000 ML IV SCH (22:08)
[2021-08-10] VITALS (53 sets, daily range): BP systolic 78–156
[2021-08-10] MEDS ORDERED: INSULIN REGULAR, HUMAN 100 UNITS in NS 99 ML IV PRN ×4 (02:15)
[2021-08-10] MEDS: MIDAZOLAM IN NACL,ISO-OSMOT/PF 100 ML IV PRN ×2 (03:45→19:43)
[2021-08-10 06:34] LABS: BASOPHILS # (AUTO) 0.1 K/uL (0.0-0.2); BASOPHILS % (AUTO) 0.6 % (0.0-2.0); EOSINOPHILS # (AUTO) 0.1 K/uL (0.0-0.4); EOSINOPHILS % (AUTO) 0.4 % (0.0-4.0); HEMATOCRIT 28.6 % (36-54); HEMOGLOBIN 8.6 g/dL (14.0-18.0); LYMPHOCYTES # (AUTO) 2.4 K/uL (1.0-5.5); LYMPHOCYTES % (AUTO) 11.1 % (20.5-51.5); MEAN CORPUSCULAR HEMOGLOBIN 28 pg (27-31); MEAN CORPUSCULAR HGB CONC 30 % (32-36); MEAN CORPUSCULAR VOLUME 93 fL (79.0-98.0); MONOCYTES # (AUTO) 0.9 K/uL (0.0-1.0); MONOCYTES % (AUTO) 4.3 % (1.7-9.3); NEUTROPHILS # (AUTO) 17.9 K/uL (1.8-7.7); NEUTROPHILS % (AUTO) 83.6 % (40.0-70.0); PLATELET COUNT (AUTO) 318 K/uL (130-430); RED BLOOD CELL COUNT(AUTO) 3.09 MIL/uL (4.2-6.2); RED CELL DISTRIBUTION WIDTH 16.6 % (9.0-15.0); WHITE BLOOD COUNT (AUTO) 21.4 K/uL (4.8-10.8)
[2021-08-10] MEDS ORDERED: NOREPINEPHRINE 4 MG/4 ML VIAL IV ONE ×2 (07:23)
[2021-08-10] MEDS: NOREPINEPHRINE BITARTRATE 8 MG in NS 242 ML IV PRN ×4 (07:33→23:48)
[2021-08-10] MEDS: PROPOFOL DRIP 100 ML IV SCH ×5 (07:44→19:52)
[2021-08-10] MEDS: FUROSEMIDE 20 MG/2 ML VIAL IVP SCH ×3 (08:20→20:46)
[2021-08-10] MEDS: PANTOPRAZOLE SODIUM 40 MG/VIAL (PROTONIX) IVP SCH (08:20)
[2021-08-10] MEDS: POLYETHYLENE GLYCOL 3350, 17 GM/ POWD.PACK PO SCH (08:21)
[2021-08-10] MEDS: CHLORHEXIDINE GLUCONATE 15 ML/DOSE, 480 ML MM SCH ×2 (08:21→20:46)
[2021-08-10] MEDS: DOCUSATE SODIUM 100 MG/10 ML UDC PO SCH ×2 (08:21→20:46)
[2021-08-10] MEDS: HEPARIN SODIUM,PORCINE 5,000 UNITS/ML VIAL SUBCUT SCH ×2 (08:23→20:50)
[2021-08-10] MEDS: INSULIN GLARGINE 100 UNITS/ML 10 ML VIAL SUBCUT SCH ×2 (08:25→20:50)
[2021-08-10 09:37] LABS: ALBUMIN 1.3 g/dL (3.4-4.8); BILIRUBIN,DIRECT 0.1 mg/dL (0.0-0.3); CALCIUM 8.7 mg/dL (8.4-11.0); CREATININE 6.45 mg/dL (0.55-1.30); PHOSPHORUS 11.9 mg/dL (2.7-4.5); TOTAL BILIRUBIN 0.2 mg/dL (0.0-1.0)
[2021-08-10 09:43] LABS: ERYTHROCYTE SEDIMENTATION RATE 115 MM/HR (0-15)
[2021-08-10 10:13] LABS: POTASSIUM 6.8 mmol/L (3.5-5.1)
[2021-08-10] MEDS: cefTRIAXone 1 GM in D5W 50 ML IV SCH (11:12)
[2021-08-10] MEDS ORDERED: DEXTROSE 50% JECT 50 ML DISP.SYRIN IVP ONE (11:45)
[2021-08-10] MEDS ORDERED: INSULIN REGULAR, HUMAN 100 UNITS/ML, 10 ML VIAL IVP ONE (11:45)
[2021-08-10 12:59] LABS: C-REACTIVE PROTEIN QUANT 27.2 mg/dL (0-0.5)
[2021-08-10] MEDS: PIPERACILLIN/TAZO 2.25G/DEX-IS 50 ML IV SCH ×3 (15:26→23:50)
[2021-08-10] MEDS: NS IV SCH (15:49)
[2021-08-10] MEDS: DAPTOMYCIN IV SCH (15:49)
[2021-08-10] MEDS ORDERED: HEPARIN SODIUM, PORCINE 10,000 UNITS/ 10 ML VIAL MC ONE (19:00)
[2021-08-10] MEDS ORDERED: HEPARIN SODIUM,PORCINE 5,000 UNITS/ML VIAL ONE (19:10)
[2021-08-10] MEDS: INSULIN REGULAR, HUMAN 100 UNITS in NS 99 ML IV PRN ×2 (20:08)
[2021-08-10] MEDS: 0.45% NACL 1,000 ML IV SCH ×2 (20:15→20:25)
[2021-08-11] VITALS (33 sets, daily range): BP systolic 107–155
[2021-08-11] MEDS: PROPOFOL DRIP 100 ML IV SCH ×6 (01:00→23:48)
[2021-08-11] MEDS: NOREPINEPHRINE BITARTRATE 8 MG in NS 242 ML IV PRN ×5 (02:53→18:51)
[2021-08-11 05:07] LABS: CERULOPLASMIN 38.4 mg/dL (16.0-31.0)
[2021-08-11] MEDS: PIPERACILLIN/TAZO 2.25G/DEX-IS 50 ML IV SCH ×3 (05:16→18:45)
[2021-08-11] MEDS: 0.45% NACL 1,000 ML IV SCH (05:17)
[2021-08-11 07:28] LABS: CALCIUM 7.8 mg/dL (8.4-11.0); CREATININE 4.65 mg/dL (0.55-1.30); PHOSPHORUS 9.1 mg/dL (2.7-4.5); POTASSIUM 4.7 mmol/L (3.5-5.1)
[2021-08-11 08:04] LABS: C-REACTIVE PROTEIN QUANT 27.5 mg/dL (0-0.5)
[2021-08-11 08:05] LABS: VANCOMYCIN,RANDOM 24.3 ug/mL
[2021-08-11 08:08] LABS: BASOPHILS # (AUTO) 0.1 K/uL (0.0-0.2); BASOPHILS % (AUTO) 0.5 % (0.0-2.0); EOSINOPHILS % (AUTO) 0.2 % (0.0-4.0); HEMATOCRIT 23.2 % (36-54); HEMOGLOBIN 7.3 g/dL (14.0-18.0); LYMPHOCYTES # (AUTO) 1.8 K/uL (1.0-5.5); LYMPHOCYTES % (AUTO) 12.9 % (20.5-51.5); MEAN CORPUSCULAR HEMOGLOBIN 28 pg (27-31); MEAN CORPUSCULAR HGB CONC 32 % (32-36); MEAN CORPUSCULAR VOLUME 88 fL (79.0-98.0); MONOCYTES # (AUTO) 0.8 K/uL (0.0-1.0); MONOCYTES % (AUTO) 5.4 % (1.7-9.3); NEUTROPHILS # (AUTO) 11.5 K/uL (1.8-7.7); RED BLOOD CELL COUNT(AUTO) 2.63 MIL/uL (4.2-6.2); RED CELL DISTRIBUTION WIDTH 16.4 % (9.0-15.0)
[2021-08-11] MEDS: PANTOPRAZOLE SODIUM 40 MG/VIAL (PROTONIX) IVP SCH (08:19)
[2021-08-11] MEDS: DOCUSATE SODIUM 100 MG/10 ML UDC PO SCH ×2 (08:19→21:48)
[2021-08-11] MEDS: POLYETHYLENE GLYCOL 3350, 17 GM/ POWD.PACK PO SCH (08:19)
[2021-08-11] MEDS: HEPARIN SODIUM,PORCINE 5,000 UNITS/ML VIAL SUBCUT SCH ×2 (08:22→21:55)
[2021-08-11 08:25] LABS: WHITE BLOOD COUNT (AUTO) 14.2 K/uL (4.8-10.8)
[2021-08-11] MEDS: FUROSEMIDE 20 MG/2 ML VIAL IVP SCH ×3 (08:41→21:49)
[2021-08-11] MEDS: INSULIN GLARGINE 100 UNITS/ML 10 ML VIAL SUBCUT SCH ×2 (08:42→22:00)
[2021-08-11 09:01] LABS: ERYTHROCYTE SEDIMENTATION RATE 119 MM/HR (0-15)
[2021-08-11] MEDS: CHLORHEXIDINE GLUCONATE 15 ML/DOSE, 480 ML MM SCH ×2 (09:31→22:01)
[2021-08-11] MEDS: cefTRIAXone 1 GM in D5W 50 ML IV SCH (10:26)
[2021-08-11 10:55] LABS: PLATELET COUNT (AUTO) 232 K/uL (130-430)
[2021-08-11] MEDS: INSULIN REGULAR, HUMAN 100 UNITS in NS 99 ML IV PRN ×2 (11:35)
[2021-08-11] MEDS: NS IV SCH (12:50)
[2021-08-11] MEDS: DAPTOMYCIN IV SCH (12:50)
[2021-08-11] MEDS: MIDAZOLAM IN NACL,ISO-OSMOT/PF 100 ML IV PRN (14:42)
[2021-08-11] MEDS ORDERED: HEPARIN SODIUM,PORCINE 5,000 UNITS/ML VIAL MC ONE (15:15)
[2021-08-11] MEDS ORDERED: NOREPINEPHRINE 4 MG/4 ML VIAL IV ONE ×2 (22:41)
[2021-08-12] VITALS (32 sets, daily range): BP systolic 92–141
[2021-08-12] MEDS: PIPERACILLIN/TAZO 2.25G/DEX-IS 50 ML IV SCH ×5 (00:02→23:28)
[2021-08-12] MEDS: PROPOFOL DRIP 100 ML IV SCH ×5 (04:41→23:31)
[2021-08-12] MEDS: INSULIN REGULAR, HUMAN 100 UNITS in NS 99 ML IV PRN ×4 (04:43→18:02)
[2021-08-12 07:14] LABS: ALBUMIN 0.9 g/dL (3.4-4.8); CALCIUM 7.4 mg/dL (8.4-11.0); CREATININE 3.73 mg/dL (0.55-1.30); POTASSIUM 4.1 mmol/L (3.5-5.1); TOTAL BILIRUBIN 0.1 mg/dL (0.0-1.0)
[2021-08-12 07:17] LABS: BASOPHILS % (AUTO) 0.1 % (0.0-2.0); EOSINOPHILS % (AUTO) 0.3 % (0.0-4.0); LYMPHOCYTES # (AUTO) 1.3 K/uL (1.0-5.5); LYMPHOCYTES % (AUTO) 15.4 % (20.5-51.5); MEAN CORPUSCULAR HEMOGLOBIN 29 pg (27-31); MEAN CORPUSCULAR HGB CONC 33 % (32-36); MEAN CORPUSCULAR VOLUME 87 fL (79.0-98.0); MONOCYTES # (AUTO) 0.3 K/uL (0.0-1.0); MONOCYTES % (AUTO) 4.1 % (1.7-9.3); NEUTROPHILS # (AUTO) 6.6 K/uL (1.8-7.7); NEUTROPHILS % (AUTO) 80.1 % (40.0-70.0); PLATELET COUNT (AUTO) 205 K/uL (130-430); RED BLOOD CELL COUNT(AUTO) 2.05 MIL/uL (4.2-6.2); RED CELL DISTRIBUTION WIDTH 15.9 % (9.0-15.0); WHITE BLOOD COUNT (AUTO) 8.3 K/uL (4.8-10.8)
[2021-08-12] MEDS: DOCUSATE SODIUM 100 MG/10 ML UDC PO SCH ×2 (08:25→20:52)
[2021-08-12] MEDS: POLYETHYLENE GLYCOL 3350, 17 GM/ POWD.PACK PO SCH (08:25)
[2021-08-12] MEDS: PANTOPRAZOLE SODIUM 40 MG/VIAL (PROTONIX) IVP SCH (08:25)
[2021-08-12] MEDS: FUROSEMIDE 20 MG/2 ML VIAL IVP SCH ×3 (08:26→21:05)
[2021-08-12] MEDS: INSULIN GLARGINE 100 UNITS/ML 10 ML VIAL SUBCUT SCH ×2 (08:28→21:05)
[2021-08-12] MEDS: HEPARIN SODIUM,PORCINE 5,000 UNITS/ML VIAL SUBCUT SCH ×2 (08:29→20:59)
[2021-08-12] MEDS: CHLORHEXIDINE GLUCONATE 15 ML/DOSE, 480 ML MM SCH ×2 (08:30→21:06)
[2021-08-12 08:38] LABS: HEMOGLOBIN 5.9 g/dL (14.0-18.0)
[2021-08-12 08:39] LABS: HEMATOCRIT 17.9 % (36-54)
[2021-08-12] MEDS: NOREPINEPHRINE BITARTRATE 8 MG in NS 242 ML IV PRN ×2 (09:42→16:53)
[2021-08-12] MEDS: MIDAZOLAM IN NACL,ISO-OSMOT/PF 100 ML IV PRN (09:43)
[2021-08-12] MEDS: cefTRIAXone 1 GM in D5W 50 ML IV SCH (09:44)
[2021-08-12] MEDS: DAPTOMYCIN IV SCH (12:42)
[2021-08-12] MEDS: NS IV SCH (12:42)
[2021-08-12 15:07] LABS: LIVER-KIDNEY MICROSOMAL AB 1.1 Units (0.0-20.0)
[2021-08-12] MEDS: EPOETIN ALFA 10,000 UNITS/ML VIAL SUBCUT SCH (17:47)
[2021-08-12] MEDS: 0.45% NACL 1,000 ML IV SCH (21:10)
[2021-08-13] VITALS (29 sets, daily range): BP systolic 2–159
[2021-08-13] MEDS: INSULIN REGULAR, HUMAN 100 UNITS in NS 99 ML IV PRN ×2 (00:36)
[2021-08-13] MEDS: MIDAZOLAM IN NACL,ISO-OSMOT/PF 100 ML IV PRN (03:59)
[2021-08-13] MEDS: NOREPINEPHRINE BITARTRATE 8 MG in NS 242 ML IV PRN ×2 (04:53→15:29)
[2021-08-13] MEDS: PIPERACILLIN/TAZO 2.25G/DEX-IS 50 ML IV SCH (05:36)
[2021-08-13 07:13] LABS: BASOPHILS % (AUTO) 0.2 % (0.0-2.0); EOSINOPHILS # (AUTO) 0.1 K/uL (0.0-0.4); EOSINOPHILS % (AUTO) 0.6 % (0.0-4.0); HEMATOCRIT 24.8 % (36-54); HEMOGLOBIN 8.3 g/dL (14.0-18.0); LYMPHOCYTES # (AUTO) 1.4 K/uL (1.0-5.5); LYMPHOCYTES % (AUTO) 15.5 % (20.5-51.5); MEAN CORPUSCULAR HEMOGLOBIN 29 pg (27-31); MEAN CORPUSCULAR HGB CONC 33 % (32-36); MEAN CORPUSCULAR VOLUME 87 fL (79.0-98.0); MONOCYTES # (AUTO) 0.4 K/uL (0.0-1.0); MONOCYTES % (AUTO) 4.1 % (1.7-9.3); NEUTROPHILS # (AUTO) 7.2 K/uL (1.8-7.7); NEUTROPHILS % (AUTO) 79.6 % (40.0-70.0); PLATELET COUNT (AUTO) 273 K/uL (130-430); RED BLOOD CELL COUNT(AUTO) 2.86 MIL/uL (4.2-6.2); RED CELL DISTRIBUTION WIDTH 15.8 % (9.0-15.0); WHITE BLOOD COUNT (AUTO) 9.1 K/uL (4.8-10.8)
[2021-08-13 07:15] LABS: CALCIUM 7.7 mg/dL (8.4-11.0); CREATININE 5.08 mg/dL (0.55-1.30); POTASSIUM 4.1 mmol/L (3.5-5.1); TOTAL BILIRUBIN 0.3 mg/dL (0.0-1.0)
[2021-08-13 07:53] LABS: TOTAL IRON BIND. CAPACITY 124 ug/dL (250-450)
[2021-08-13] MEDS: PROPOFOL DRIP 100 ML IV SCH ×2 (08:27→20:45)
[2021-08-13] MEDS: DOCUSATE SODIUM 100 MG/10 ML UDC PO SCH ×2 (08:52→20:47)
[2021-08-13] MEDS: POLYETHYLENE GLYCOL 3350, 17 GM/ POWD.PACK PO SCH (08:52)
[2021-08-13] MEDS: PANTOPRAZOLE SODIUM 40 MG/VIAL (PROTONIX) IVP SCH (08:52)
[2021-08-13] MEDS: FUROSEMIDE 20 MG/2 ML VIAL IVP SCH ×2 (08:53→20:48)
[2021-08-13] MEDS: CHLORHEXIDINE GLUCONATE 15 ML/DOSE, 480 ML MM SCH ×2 (08:53→20:49)
[2021-08-13] MEDS: HEPARIN SODIUM,PORCINE 5,000 UNITS/ML VIAL SUBCUT SCH ×2 (09:07→20:46)
[2021-08-13] MEDS: INSULIN GLARGINE 100 UNITS/ML 10 ML VIAL SUBCUT SCH ×2 (09:16→21:07)
[2021-08-13] MEDS ORDERED: INSULIN REGULAR, HUMAN 100 UNITS in NS 99 ML IV PRN ×2 (13:00)
[2021-08-13] MEDS ORDERED: HEPARIN SODIUM,PORCINE 5,000 UNITS/ML VIAL ONE (15:51)
[2021-08-13] MEDS: CEFTAROLINE FOSAMIL ACETATE 400 MG in NS 250 ML IV SCH (20:47)
[2021-08-13] MEDS: 0.45% NACL 1,000 ML IV SCH (20:49)
[2021-08-14] VITALS (32 sets, daily range): BP systolic 102–138
[2021-08-14] MEDS: MIDAZOLAM IN NACL,ISO-OSMOT/PF 100 ML IV PRN (01:23)
[2021-08-14] MEDS ORDERED: CEFAZOLIN 1 GM IVPB PREMIX 50 ML IV ONE (07:30)
[2021-08-14 07:59] LABS: BASOPHILS % (AUTO) 0.3 % (0.0-2.0); EOSINOPHILS # (AUTO) 0.1 K/uL (0.0-0.4); EOSINOPHILS % (AUTO) 0.7 % (0.0-4.0); HEMOGLOBIN 8.3 g/dL (14.0-18.0); LYMPHOCYTES # (AUTO) 1.5 K/uL (1.0-5.5); LYMPHOCYTES % (AUTO) 16.5 % (20.5-51.5); MEAN CORPUSCULAR HEMOGLOBIN 29 pg (27-31); MEAN CORPUSCULAR HGB CONC 33 % (32-36); MEAN CORPUSCULAR VOLUME 87 fL (79.0-98.0); MONOCYTES # (AUTO) 0.5 K/uL (0.0-1.0); MONOCYTES % (AUTO) 5.4 % (1.7-9.3); NEUTROPHILS # (AUTO) 7.2 K/uL (1.8-7.7); NEUTROPHILS % (AUTO) 77.1 % (40.0-70.0); PLATELET COUNT (AUTO) 325 K/uL (130-430); RED BLOOD CELL COUNT(AUTO) 2.88 MIL/uL (4.2-6.2); RED CELL DISTRIBUTION WIDTH 15.9 % (9.0-15.0); WHITE BLOOD COUNT (AUTO) 9.4 K/uL (4.8-10.8)
[2021-08-14 08:12] LABS: CALCIUM 8.3 mg/dL (8.4-11.0); CREATININE 4.22 mg/dL (0.55-1.30); PHOSPHORUS 6.9 mg/dL (2.7-4.5); POTASSIUM 4.3 mmol/L (3.5-5.1)
[2021-08-14] MEDS: CEFTAROLINE FOSAMIL ACETATE 400 MG in NS 250 ML IV SCH ×2 (08:39→22:03)
[2021-08-14] MEDS: PANTOPRAZOLE SODIUM 40 MG/VIAL (PROTONIX) IVP SCH (08:39)
[2021-08-14] MEDS: POLYETHYLENE GLYCOL 3350, 17 GM/ POWD.PACK PO SCH (08:40)
[2021-08-14] MEDS: DOCUSATE SODIUM 100 MG/10 ML UDC PO SCH ×2 (08:40→21:00)
[2021-08-14] MEDS: FUROSEMIDE 20 MG/2 ML VIAL IVP SCH ×3 (08:41→22:04)
[2021-08-14] MEDS: CHLORHEXIDINE GLUCONATE 15 ML/DOSE, 480 ML MM SCH ×2 (08:41→21:32)
[2021-08-14] MEDS: INSULIN GLARGINE 100 UNITS/ML 10 ML VIAL SUBCUT SCH ×2 (08:47→22:05)
[2021-08-14] MEDS: HEPARIN SODIUM,PORCINE 5,000 UNITS/ML VIAL SUBCUT SCH ×2 (08:48→22:05)
[2021-08-14] MEDS ORDERED: INSULIN LISPRO SLIDING SCALE 100 UNITS/ML VIAL (humaLOG) SUBCUT PRN (11:45)
[2021-08-14] MEDS: NOREPINEPHRINE BITARTRATE 8 MG in NS 242 ML IV PRN (12:03)
[2021-08-14] MEDS: PROPOFOL DRIP 100 ML IV SCH (17:03)
[2021-08-14] MEDS: EPOETIN ALFA 10,000 UNITS/ML VIAL SUBCUT SCH (17:11)
[2021-08-15] VITALS (29 sets, daily range): BP systolic 99–142
[2021-08-15 06:03] LABS: INR 1.2 (0.80-1.20); PROTHROMBIN TIME 11.7 SECS (9.5-12.5)
[2021-08-15 06:08] LABS: BASOPHILS # (AUTO) 0.1 K/uL (0.0-0.2); BASOPHILS % (AUTO) 0.5 % (0.0-2.0); EOSINOPHILS # (AUTO) 0.2 K/uL (0.0-0.4); EOSINOPHILS % (AUTO) 1.5 % (0.0-4.0); HEMATOCRIT 24.7 % (36-54); HEMOGLOBIN 8.2 g/dL (14.0-18.0); LYMPHOCYTES # (AUTO) 1.8 K/uL (1.0-5.5); LYMPHOCYTES % (AUTO) 17.5 % (20.5-51.5); MEAN CORPUSCULAR HEMOGLOBIN 29 pg (27-31); MEAN CORPUSCULAR HGB CONC 33 % (32-36); MEAN CORPUSCULAR VOLUME 88 fL (79.0-98.0); MONOCYTES # (AUTO) 0.6 K/uL (0.0-1.0); MONOCYTES % (AUTO) 5.5 % (1.7-9.3); NEUTROPHILS # (AUTO) 7.6 K/uL (1.8-7.7); PLATELET COUNT (AUTO) 358 K/uL (130-430); RED BLOOD CELL COUNT(AUTO) 2.81 MIL/uL (4.2-6.2); RED CELL DISTRIBUTION WIDTH 15.9 % (9.0-15.0); WHITE BLOOD COUNT (AUTO) 10.1 K/uL (4.8-10.8)
[2021-08-15] MEDS ORDERED: fentaNYL CITRATE/PF 100 MCG/2 ML AMP ONE (06:59)
[2021-08-15] MEDS ORDERED: MIDAZOLAM HCL 5 MG/5 ML VIAL ONE (07:00)
[2021-08-15] MEDS: CEFTAROLINE FOSAMIL ACETATE 400 MG in NS 250 ML IV SCH ×2 (08:11→21:18)
[2021-08-15 08:13] LABS: CALCIUM 8.4 mg/dL (8.4-11.0); CREATININE 6.03 mg/dL (0.55-1.30)
[2021-08-15] MEDS: FUROSEMIDE 20 MG/2 ML VIAL IVP SCH ×3 (09:00→21:18)
[2021-08-15] MEDS: DOCUSATE SODIUM 100 MG/10 ML UDC PO SCH ×2 (09:00→21:00)
[2021-08-15] MEDS: NOREPINEPHRINE BITARTRATE 8 MG in NS 242 ML IV PRN (10:36)
[2021-08-15] MEDS: POLYETHYLENE GLYCOL 3350, 17 GM/ POWD.PACK PO SCH (10:42)
[2021-08-15] MEDS: PANTOPRAZOLE SODIUM 40 MG/VIAL (PROTONIX) IVP SCH (10:42)
[2021-08-15] MEDS: PROPOFOL DRIP 100 ML IV SCH (10:45)
[2021-08-15] MEDS: CHLORHEXIDINE GLUCONATE 15 ML/DOSE, 480 ML MM SCH ×2 (17:49→21:19)
[2021-08-15] MEDS: HEPARIN SODIUM,PORCINE 5,000 UNITS/ML VIAL SUBCUT SCH ×2 (17:53→21:20)
[2021-08-15] MEDS: INSULIN GLARGINE 100 UNITS/ML 10 ML VIAL SUBCUT SCH ×2 (17:58→21:20)
[2021-08-16] VITALS (10 sets, daily range): BP systolic 107–135
[2021-08-16 06:13] LABS: BASOPHILS % (AUTO) 0.4 % (0.0-2.0); EOSINOPHILS # (AUTO) 0.2 K/uL (0.0-0.4); EOSINOPHILS % (AUTO) 1.6 % (0.0-4.0); HEMATOCRIT 26.6 % (36-54); HEMOGLOBIN 8.6 g/dL (14.0-18.0); LYMPHOCYTES # (AUTO) 1.5 K/uL (1.0-5.5); LYMPHOCYTES % (AUTO) 14.1 % (20.5-51.5); MEAN CORPUSCULAR HEMOGLOBIN 29 pg (27-31); MEAN CORPUSCULAR HGB CONC 32 % (32-36); MEAN CORPUSCULAR VOLUME 88 fL (79.0-98.0); MONOCYTES # (AUTO) 0.5 K/uL (0.0-1.0); MONOCYTES % (AUTO) 4.6 % (1.7-9.3); NEUTROPHILS # (AUTO) 8.4 K/uL (1.8-7.7); NEUTROPHILS % (AUTO) 79.3 % (40.0-70.0); PLATELET COUNT (AUTO) 416 K/uL (130-430); RED BLOOD CELL COUNT(AUTO) 3.01 MIL/uL (4.2-6.2); RED CELL DISTRIBUTION WIDTH 16.8 % (9.0-15.0); WHITE BLOOD COUNT (AUTO) 10.6 K/uL (4.8-10.8)
[2021-08-16 06:47] LABS: CALCIUM 8.5 mg/dL (8.4-11.0); CREATININE 7.31 mg/dL (0.55-1.30); POTASSIUM 5.4 mmol/L (3.5-5.1)
[2021-08-16] MEDS ORDERED: MORPHINE SULFATE IN 0.9 % NACL 100 ML IV PRN (07:45)
[2021-08-16] MEDS: LORazepam 2 MG/ML VIAL IVP PRN ×2 (08:55→10:59)
[2021-08-16] MEDS ORDERED: MORPHINE 4 MG INJ. 4 MG/ML VIAL IVP ONE (11:45)
[2021-08-20 13:57] LABS: FERRITIN 1485 ng/mL (30-400)
[2021-08-24 16:31] LABS: ALPHA-1-ANTITRYPSIN, S 263 mg/dL (101-187)
[2021-08-24 16:33] LABS: ANTI-SMOOTH MUSCLE AB 32 Units (0-19)
== END 2021-08-16 12:53 | DRG 870 ==
LOC: SED 17:20 → SIC 21:13 → STU 07-30 19:50 → SIC 08-05 05:20
PROVIDERS: ADMIT Preventive Medicine Preventive Medicine/Occupational Environmental Medicine; ATTEND Preventive Medicine Preventive Medicine/Occupational Environmental Medicine
PROC: 05HY33Z Insertion of Infusion Device into Upper Vein, Percutaneous Approach (ICD-10-PCS; 2021-07-29)
PROC: B54NZZA Ultrasonography of Left Upper Extremity Veins, Guidance (ICD-10-PCS; 2021-07-29)
PROC: 5A1955Z Respiratory Ventilation, Greater than 96 Consecutive Hours (ICD-10-PCS; principal; 2021-08-06)
PROC: 0BH17EZ Insertion of Endotracheal Airway into Trachea, Via Natural or Artificial Opening (ICD-10-PCS; 2021-08-06)
PROC: 0B9F8ZX Drainage of Right Lower Lung Lobe, Via Natural or Artificial Opening Endoscopic, Diagnostic (ICD-10-PCS; 2021-08-06)
PROC: 3E0336Z Introduction of Nutritional Substance into Peripheral Vein, Percutaneous Approach (ICD-10-PCS; 2021-08-06)
PROC: 02HV33Z Insertion of Infusion Device into Superior Vena Cava, Percutaneous Approach (ICD-10-PCS; 2021-08-08)
PROC: B548ZZA Ultrasonography of Superior Vena Cava, Guidance (ICD-10-PCS; 2021-08-08)
PROC: 5A1D70Z Performance of Urinary Filtration, Intermittent, Less than 6 Hours Per Day (ICD-10-PCS; 2021-08-09)
PROC: 5A1D70Z Performance of Urinary Filtration, Intermittent, Less than 6 Hours Per Day (ICD-10-PCS; 2021-08-10)
PROC: 5A1D70Z Performance of Urinary Filtration, Intermittent, Less than 6 Hours Per Day (ICD-10-PCS; 2021-08-11)
PROC: 30233N1 Transfusion of Nonautologous Red Blood Cells into Peripheral Vein, Percutaneous Approach (ICD-10-PCS; 2021-08-12)
PROC: 5A1D70Z Performance of Urinary Filtration, Intermittent, Less than 6 Hours Per Day (ICD-10-PCS; 2021-08-13)
DX: A41.02 Sepsis due to Methicillin resistant Staphylococcus aureus (principal); R65.21 Severe sepsis with septic shock; G92.9 Unspecified toxic encephalopathy; E43 Unspecified severe protein-calorie malnutrition; N18.6 End stage renal disease; J96.01 Acute respiratory failure with hypoxia; J15.212 Pneumonia due to Methicillin resistant Staphylococcus aureus; N17.0 Acute kidney failure with tubular necrosis; B37.49 Other urogenital candidiasis; E87.0 Hyperosmolality and hypernatremia; E87.1 Hypo-osmolality and hyponatremia; Z99.11 Dependence on respirator [ventilator] status; I13.2 Hypertensive heart and chronic kidney disease with heart failure and with stage 5 chronic kidney disease, or end stage renal disease; B96.1 Klebsiella pneumoniae [K. pneumoniae] as the cause of diseases classified elsewhere; N40.0 Benign prostatic hyperplasia without lower urinary tract symptoms; E11.22 Type 2 diabetes mellitus with diabetic chronic kidney disease; E87.5 Hyperkalemia; E83.41 Hypermagnesemia; R74.01 Elevation of levels of liver transaminase levels; E87.8 Other disorders of electrolyte and fluid balance, not elsewhere classified; E87.6 Hypokalemia; E11.65 Type 2 diabetes mellitus with hyperglycemia; I50.9 Heart failure, unspecified; F15.10 Other stimulant abuse, uncomplicated; E83.51 Hypocalcemia; E83.39 Other disorders of phosphorus metabolism; R13.10 Dysphagia, unspecified; A41.59 Other Gram-negative sepsis; F29 Unspecified psychosis not due to a substance or known physiological condition; E66.9 Obesity, unspecified; E78.5 Hyperlipidemia, unspecified; R57.0 Cardiogenic shock; L89.150 Pressure ulcer of sacral region, unstageable; R57.8 Other shock; K76.0 Fatty (change of) liver, not elsewhere classified; D50.9 Iron deficiency anemia, unspecified; Z20.822 Contact with and (suspected) exposure to COVID-19; S09.90XA Unspecified injury of head, initial encounter; X58.XXXA Exposure to other specified factors, initial encounter; Y92.89 Other specified places as the place of occurrence of the external cause; Y93.89 Activity, other specified; Y99.8 Other external cause status; Z79.4 Long term (current) use of insulin; Z99.2 Dependence on renal dialysis; Z87.01 Personal history of pneumonia (recurrent); Z86.16 Personal history of COVID-19; Z68.36 Body mass index [BMI] 36.0-36.9, adult; Z86.73 Personal history of transient ischemic attack (TIA), and cerebral infarction without residual deficits
CPT/HCPCS: 36415; 36600; 70450-TC; 71045; 72125-TC; 76376; 76604; 76700-TC; 78226; 80048; 80053; 80074; 80076; 80202; 80307; 81000; 82103; 82140; 82390; 82728; 82803-TC; 82962; 83516; 83540; 83550; 83605; 83735; 83880; 84100; 84443; 84478; 84484; 85025; 85610-TC; 85651-TC; 85730-TC; 86140; 86376; 86886; 86900; 86901; 86920; 87040; 87070-TC; 87086; 87186-TC; 87205-TC; 90935; 90937; 92610-GN; 93005; 93306; 94002; 94003; 94640; 94760; 96372; 96374; 96375; 97110-GP; 97530-GP; 99291; A9537; C9113; G0378; G0480; G0481; G0482; J0690; J0696; J0712; J0878; J0885; J1450; J1630; J1644; J1720; J1815; J1940; J2060; J2250; J2270; J2543; J2704; J3010; J3370; J3480; J3490; J7050; J7060; P9021; P9041